=== PATIENT | female | born 1975 | race Caucasian/White ===

== ENCOUNTER → 2019-01-05 16:19 | Outpatient (CLI) | payer MEDICARE ==
[2015-11-16 08:29] VITALS: BMI 42.8
[~2019-01-05 16:19] MED LIST: ATARAX 25 MG TA25 MG PO; FISH OIL 1,0001 CA1 PO; FOLIC ACID1 MG PO; LEVOTHYROXINE50 MCG PO; PAXIL40 MG PO; PRILOSEC20 MG PO; TENORMIN25 MG PO
[2019-01-05 16:30] LABS: BASOPHILS 0.4 % (0-2); HEMATOCRIT 36.2 % (36.0-48.0); HEMOGLOBIN 12.3 g/dL (12-16); IMMATURE GRANULOCYTES 0.4 % (0-5); LYMPHOCYTES 22.8 % (15-50); MCV 88.3 fL (80.0-100.0); MEAN PLATELET VOLUME 10.5 fL (7.4-10.4); MONOCYTES 6.2 % (2-11); NEUTROPHILS 68.2 % (40-80); PLATELET COUNT 102 10x3/uL (130-400); RDW 15.3 % (11.5-14.5); WBC 4.5 10x3/uL (4.8-10.8)
[2019-01-05 16:51] LABS: CREATININE - SERUM 0.7 mg/dL (0.6-1.3)
== END | disposition home or self-care (01) ==
LOC: D.LABREF 16:19
PROVIDERS: ATTEND Nurse Practitioner
DX: Z98.84 Bariatric surgery status (principal); E66.01 Morbid (severe) obesity due to excess calories; G47.33 Obstructive sleep apnea (adult) (pediatric)